=== PATIENT | male | born 1950 | race African-American/Black ===

== ENCOUNTER 2020-10-26 07:52 | Inpatient (IN) ==
[2020-10-20 13:03] LABS: Basophils % 0.5 % (0.0-0.8); Eosinophils # 0.2 10*3/uL (0.0-0.87); Eosinophils % 2.4 % (0.00-10.9); Hematocrit 39.1 VOL% (42.0-52.0); Hemoglobin 12.1 GM/DL (14.0-18.0); Immature Granulocytes % 0.3 %; Immature Granulocytes Absolute 0.02 #; Lymphocytes # 1.9 10*3/uL (1.4-4.0); Lymphocytes % 30.9 % (21.2-54.2); Mean Corpuscular HGB Conc 30.9 GM/DL (32-36); Mean Corpuscular Volume 96.5 FL (87-102); Mean Platelet Volume 9.5 FL (9.6-12.0); Monocytes % 12.1 % (1.7-12.7); Neutrophils % 53.8 % (38.7-73.9); Platelet Count 393 T/CUMM (130-400); Red Blood Count 4.05 MC/CUMM (3.8-5.5); Red Cell Distribution Width 13.2 % (9.3-17.3); White Blood Count 6.2 T/CUMM (4-12)
[2020-10-20 13:28] LABS: Albumin 3.7 G/DL (3.4-5.0); Bilirubin,Total 0.8 MG/DL (0.20-1.00); Calcium 9.1 MG/DL (8.5-10.1); Osmolality,Calculated 284.4 MOS/KG (273-304); Potassium 4.7 MMOL/L (3.5-5.1); Total Protein 7.5 G/DL (6.4-8.2)
[~2020-10-26 07:52] MED LIST: ACETAMINOPHEN 500 MG TABLET PO ONE; DIAZEPAM 5 MG TABLET PO ONE; FAMOTIDINE 20 MG TABLET PO ONE; GABAPENTIN 400 MG CAPSULE PO ONE; LACTATED RINGERS 1,000 ML IV SCH; cefTRIAXone 1,000 MG in SODIUM CHLORIDE 0.9% 100 ML IV ONE
[2020-10-26] MEDS ORDERED: DIAZEPAM 5 MG TABLET ONE (08:45)
[2020-10-26] MEDS ORDERED: FAMOTIDINE 20 MG TABLET ONE (08:46)
[2020-10-26] MEDS ORDERED: GABAPENTIN 400 MG CAPSULE ONE (08:46)
[2020-10-26] MEDS ORDERED: ACETAMINOPHEN 500 MG TABLET ONE (08:46)
[2020-10-26] MEDS ORDERED: DEXAMETHASONE 4 MG/1 ML VIAL ONE (12:41)
[2020-10-26] MEDS ORDERED: ROPIVACAINE 0.5% 30 ML VIAL ONE ×2 (12:41→16:08)
[2020-10-26] MEDS ORDERED: LIDOCAINE 1% 5 ML VIAL ONE (12:41)
[2020-10-26] MEDS ORDERED: MIDAZOLAM 2 MG/2 ML VIAL ONE (12:47)
[2020-10-26] MEDS ORDERED: ONDANSETRON 4 MG/2 ML VIAL ONE ×2 (12:47→15:53)
[2020-10-26] MEDS ORDERED: fentaNYL 100 MCG/2 ML VIAL ONE ×2 (12:47→14:06)
[2020-10-26] MEDS ORDERED: LIDOCAINE 2% 5 ML VIAL ONE (12:49)
[2020-10-26] MEDS ORDERED: ROCURONIUM 50 MG/5 ML VIAL IV ONE ×2 (12:49→15:05)
[2020-10-26] MEDS ORDERED: propofoL 200 MG/20 ML VIAL IV ONE (12:49)
[2020-10-26] MEDS ORDERED: SEVOFLURANE 1 UNIT/15 MINUTE INH ONE ×8 (12:52→15:05)
[2020-10-26] MEDS ORDERED: GLYCOPYRROLATE 0.4 MG/2 ML VIAL ONE ×3 (14:03→16:11)
[2020-10-26] MEDS ORDERED: PHENYLEPHRINE 1 MG/10 ML SYRINGE IV ONE (14:35)
[2020-10-26] MEDS ORDERED: PHENYLEPHRINE 10 MG/1 ML VIAL IV ONE (14:58)
[2020-10-26] MEDS ORDERED: NEOSTIGMINE 10 MG/10 ML VIAL ONE (15:53)
[2020-10-26] MEDS ORDERED: DEXTROSE 50% 25 GM/50 ML VIAL IV PRN (16:14)
[2020-10-26] MEDS ORDERED: PROMETHAZINE 25 MG/1 ML VIAL IM PRN (16:14)
[2020-10-26] MEDS ORDERED: GLUCAGON 1 MG VIAL IM PRN (16:14)
[2020-10-26] MEDS ORDERED: diphenhydrAMINE 50 MG/1 ML VIAL IV PRN (16:20)
[2020-10-26] MEDS ORDERED: SIMETHICONE CHEW 80 MG TABLET PO PRN (16:21)
[2020-10-26] MEDS ORDERED: CALCIUM CARBONATE CHEW 500 MG TABLET PO PRN (16:21)
[2020-10-26] MEDS ORDERED: SODIUM CHLORIDE 0.9% 1,000 ML IV SCH (16:30)
[2020-10-26 16:49] LABS: Bilirubin,Urine Negative (Negative); Blood, Urine Small mg/dL (Negative); Glucose,Urine (UA) Negative (Negative); Ketones,Urine Negative (Negative); Mucus,Urine Occasional /LPF (Occasional); Nitrite,Urine Negative (Negative); Protein,Urine Negative; RBC,Urine 5 /HPF (0-4); Urine Appearance CLEAR (Clear); Urine Color Yellow (Yellow); Urine Specific Gravity 1.014 (1.001-1.035); Urine Urobilinogen < 2.0 EU/DL (0.2-1.0)
[2020-10-26] MEDS ORDERED: metFORMIN 500 MG TABLET PO SCH (17:00)
[2020-10-26] MEDS ORDERED: ONDANSETRON 4 MG/2 ML VIAL IV PRN (17:03)
[2020-10-26] MEDS: HYDROmorphone 2 MG/1 ML VIAL IV PRN ×5 (17:05→22:25)
[2020-10-26 17:12] LABS: Basophils % 0.2 % (0.0-0.8); Eosinophils % 0.3 % (0.00-10.9); Hematocrit 35.1 VOL% (42.0-52.0); Hemoglobin 10.7 GM/DL (14.0-18.0); Immature Granulocytes % 0.6 %; Immature Granulocytes Absolute 0.08 #; Lymphocytes # 1.9 10*3/uL (1.4-4.0); Lymphocytes % 15.6 % (21.2-54.2); Mean Corpuscular HGB Conc 30.5 GM/DL (32-36); Mean Corpuscular Volume 97.5 FL (87-102); Mean Platelet Volume 9.2 FL (9.6-12.0); Monocytes % 2.8 % (1.7-12.7); Neutrophils % 80.5 % (38.7-73.9); Platelet Count 339 T/CUMM (130-400); Red Cell Distribution Width 13.2 % (9.3-17.3); White Blood Count 12.3 T/CUMM (4-12)
[2020-10-26] MEDS: ONDANSETRON 4 MG/2 ML VIAL IV PRN ×2 (17:17→22:22)
[2020-10-26 17:26] LABS: Osmolality,Calculated 277.8 MOS/KG (273-304); Potassium 4.4 MMOL/L (3.5-5.1)
[2020-10-26] MEDS: ACETAMINOPHEN 325 MG TABLET PO SCH ×2 (18:39→22:21)
[2020-10-26] MEDS: INSULIN LISPRO 100 UNIT/ML SUBCUT SCH ×2 (18:39→20:06)
[2020-10-26] MEDS ORDERED: cefTRIAXone 1,000 MG in SODIUM CHLORIDE 0.9% 100 ML IV ONE (20:00)
[2020-10-26] MEDS ORDERED: BENZOCAINE/MENTHOL LOZENGE 18/BOX PO PRN (20:22)
[2020-10-26] MEDS: ALVIMOPAN 12 MG CAPSULE PO SCH (22:20)
[2020-10-27] MEDS: ONDANSETRON 4 MG/2 ML VIAL IV PRN (02:45)
[2020-10-27] MEDS: HYDROmorphone 2 MG/1 ML VIAL IV PRN (02:48)
[2020-10-27] MEDS: ACETAMINOPHEN 325 MG TABLET PO SCH ×3 (04:20→18:09)
[2020-10-27 05:37] LABS: Basophils % 0.1 % (0.0-0.8); Hematocrit 32.5 VOL% (42.0-52.0); Hemoglobin 10.2 GM/DL (14.0-18.0); Immature Granulocytes % 0.4 %; Immature Granulocytes Absolute 0.03 #; Lymphocytes # 0.9 10*3/uL (1.4-4.0); Lymphocytes % 10.9 % (21.2-54.2); Mean Corpuscular HGB Conc 31.4 GM/DL (32-36); Monocytes % 5.4 % (1.7-12.7); Neutrophils % 83.2 % (38.7-73.9); Platelet Count 335 T/CUMM (130-400); Red Blood Count 3.42 MC/CUMM (3.8-5.5); White Blood Count 8.1 T/CUMM (4-12)
[2020-10-27 05:56] LABS: Osmolality,Calculated 278.8 MOS/KG (273-304); Potassium 4.1 MMOL/L (3.5-5.1)
[2020-10-27] MEDS: INSULIN LISPRO 100 UNIT/ML SUBCUT SCH ×4 (07:20→21:47)
[2020-10-27] MEDS: ALVIMOPAN 12 MG CAPSULE PO SCH ×2 (08:26→21:43)
[2020-10-27] MEDS: FERROUS SULFATE 325 MG TABLET PO SCH (08:27)
[2020-10-27] MEDS: PANTOPRAZOLE 40 MG TABLET PO SCH (08:27)
[2020-10-27] MEDS: amLODIPine 10 MG TABLET PO SCH (08:27)
[2020-10-27] MEDS: DOCUSATE SODIUM 100 MG CAPSULE PO SCH ×2 (12:32→21:43)
[2020-10-27] MEDS: NICOTINE 21 MG/24 HR PATCH TRANSDERM SCH (16:32)
[2020-10-27] MEDS: oxyCODONE/ACETAMINOPHEN 5-325 MG TABLET PO PRN (19:25)
[2020-10-27] MEDS ORDERED: SIMVASTATIN 10 MG TABLET PO SCH (21:00)
[2020-10-28] MEDS: ACETAMINOPHEN 325 MG TABLET PO SCH ×2 (01:11→07:00)
[2020-10-28] MEDS: oxyCODONE/ACETAMINOPHEN 5-325 MG TABLET PO PRN (01:11)
[2020-10-28 06:01] LABS: Basophils % 0.3 % (0.0-0.8); Eosinophils % 0.3 % (0.00-10.9); Hematocrit 34.6 VOL% (42.0-52.0); Immature Granulocytes % 0.3 %; Immature Granulocytes Absolute 0.02 #; Lymphocytes # 1.7 10*3/uL (1.4-4.0); Lymphocytes % 21.2 % (21.2-54.2); Mean Corpuscular HGB Conc 31.8 GM/DL (32-36); Mean Corpuscular Volume 94.3 FL (87-102); Mean Platelet Volume 9.3 FL (9.6-12.0); Monocytes % 9.6 % (1.7-12.7); Neutrophils % 68.3 % (38.7-73.9); Platelet Count 319 T/CUMM (130-400); Red Blood Count 3.67 MC/CUMM (3.8-5.5); Red Cell Distribution Width 12.9 % (9.3-17.3); White Blood Count 7.8 T/CUMM (4-12)
[2020-10-28 06:11] LABS: Osmolality,Calculated 280.4 MOS/KG (273-304); Potassium 3.5 MMOL/L (3.5-5.1)
[2020-10-28] MEDS: PANTOPRAZOLE 40 MG TABLET PO SCH (08:22)
[2020-10-28] MEDS: FERROUS SULFATE 325 MG TABLET PO SCH (08:22)
[2020-10-28] MEDS: ALVIMOPAN 12 MG CAPSULE PO SCH (08:22)
[2020-10-28] MEDS: amLODIPine 10 MG TABLET PO SCH (08:22)
[2020-10-28] MEDS: DOCUSATE SODIUM 100 MG CAPSULE PO SCH (08:22)
[2020-10-28] MEDS ORDERED: BISACODYL 10 MG SUPP RECTAL ONE (08:30)
[2020-10-28] MEDS: INSULIN LISPRO 100 UNIT/ML SUBCUT SCH ×2 (08:44→11:39)
[2020-10-28 09:36] VITALS: BP 151/85
[2020-10-28] MEDS: NICOTINE 21 MG/24 HR PATCH TRANSDERM SCH (11:43)
== END 2020-10-28 13:40 | disposition home or self-care (01) | DRG 657 ==
LOC: N.OR 07:52 → N.SDSINP 07:54 → N.OB 16:14
PROVIDERS: ADMIT Surgery; ATTEND Surgery